=== PATIENT | female | born 1950 | race Caucasian/White ===

== ENCOUNTER 2016-12-02 06:51 | Day surgery (SDC) | payer MEDICARE, OTHER ==
--- NOTE | ~2016-12-02 | EGD ---
EGD REPORT [facility] [address] [address] NAME: KIRIT ADLER : [birth year] STATUS : REG [facility]#: [id number] AGE: 66 ADM/REG DATE : 12/02/16 MR#: [id number] REPORT SERV DATE: 12/02/16 DICTATED BY: DATE: REPORT STATUS : Draft TRANSCRIBED BY: [employer] DATE: 12/02/16 [facility]oscopy Center Patient Name: Kirit Adler Date of : 1950 Attending MD: DELISA SERRA MD Procedure Date No Time: 12/02/2016 Procedure: Upper GI endoscopy Indications: Abdominal pain, Anemia Referring MD: JEFF MABRY Medicines: Monitored Anesthesia Care Complications: No immediate complications. Procedure: Pre-Anesthesia Assessment: - ASA Grade Assessment: III - A patient with severe systemic disease. After obtaining informed consent, the endoscope was passed under direct vision. Throughout the procedure, the patient's blood pressure, pulse, and oxygen saturations were monitored continuously. The GIF [id number] was introduced through the mouth, and advanced to the third part of duodenum. The upper GI endoscopy was accomplished without difficulty. The patient tolerated the procedure well. Findings: The examined esophagus was mildly tortuous. A small hiatus hernia was present. A benign-appearing, intrinsic mild stenosis measuring less than one cm (in length) was found 34 cm from the incisors and was traversed. Biopsies were taken with a cold forceps for histology. A guidewire was placed and the scope was withdrawn. Dilation was performed with a Savary dilator with no resistance at 54 Fr. No other significant abnormalities were identified in a careful examination of the esophagus. There is no endoscopic evidence of areas of erosion, ulcerations or varices in the entire esophagus. Diffuse moderately erythematous mucosa without bleeding was found in the entire examined stomach. Biopsies were taken with a cold forceps for histology. There is no endoscopic evidence of ulceration or varices in the entire examined stomach. The examined duodenum was normal. There is no endoscopic evidence of inflammation, mucosal abnormalities or ulceration in the entire examined duodenum. The cardia and gastric fundus were normal on retroflexion. EGD REPORT [address] [address] NAME: KIRIT ADLER : [birth year] STATUS : REG [facility] [place] PAT#: [id number] AGE: 66 ADM/REG DATE : 12/02/16 MR#: [id number] REPORT SERV DATE: 12/02/16 DICTATED BY: DATE: REPORT STATUS : Draft TRANSCRIBED BY: [employer] DATE: 12/02/16 Impression: - Tortuous esophagus. - Hiatus hernia. - Benign-appearing esophageal stricture. Biopsied. Dilated. - Erythematous mucosa in the stomach. Biopsied. - Normal examined duodenum. Recommendation: - Patient has a contact number available for emergencies. The signs and symptoms of potential delayed complications were discussed with the patient. Return to normal activities tomorrow. Written discharge instructions were provided to the patient. - Return to previous diet. - Discharge patient to home. - Continue present medications. - Await pathology results. Procedure Code(s): --- Professional --- 03663, Esophagogastroduodenoscopy, flexible, transoral; with insertion of guide wire followed by passage of dilator(s) through esophagus over guide wire 06922, Esophagogastroduodenoscopy, flexible, transoral; with biopsy, single or multiple Diagnosis Code(s): --- Professional --- Q39.9, Congenital malformation of esophagus, unspecified K44.9, Diaphragmatic hernia without obstruction or gangrene K22.2, Esophageal obstruction K31.9, Disease of stomach and duodenum, unspecified R10.9, Unspecified abdominal pain D64.9, Anemia, unspecified CPT copyright 2013 [employer]. All rights reserved. The codes documented in this report are preliminary and upon structural layout worker review may be revised to meet current compliance requirements. DELISA SERRA MD 12/02/2016 9:48 AM This report has been signed electronically. Number of Addenda: 0 Note Initiated On: 12/02/2016 9:16 AM Scope Withdrawal Time 0 hours 0 minutes 0 seconds EGD REPORT [facility] [address] [address] NAME: KIRIT ADLER : [birth year] STATUS : REG [facility] – [place] PAT#: [id number] AGE: 66 ADM/REG DATE : 12/02/16 MR#: [id number] REPORT SERV DATE: 12/02/16 DICTATED BY: DATE: REPORT STATUS : Draft TRANSCRIBED BY: [employer] DATE: 12/02/16 [address] [id number]
--- NOTE | ~2016-12-02 | EGD ---
EGD REPORT [facility] [address] [address] NAME: KIRIT ADLER : [birth year] STATUS : REG [facility]#: [id number] AGE: 66 ADM/REG DATE : 12/02/16 MR#: [id number] REPORT SERV DATE: 12/02/16 DICTATED BY: DATE: REPORT STATUS : Draft TRANSCRIBED BY: [employer] DATE: 12/02/16 Endoscopy Center Patient Name: Kirit Adler Date of : 1950 Attending MD: DELISA SERRA MD Procedure Date No Time: 12/02/2016 Procedure: Colonoscopy Indications: Abdominal pain, Anemia Referring MD: JEFF MABRY Medicines: Monitored Anesthesia Care Complications: No immediate complications. Procedure: Pre-Anesthesia Assessment: - ASA Grade Assessment: III - A patient with severe systemic disease. After I obtained informed consent, the scope was passed under direct vision. Throughout the procedure, the patient's blood pressure, pulse, and oxygen saturations were monitored continuously. The PCF [id number] was introduced through the anus and advanced to the cecum, identified by appendiceal orifice and ileocecal valve. The colonoscopy was performed without difficulty. The patient tolerated the procedure well. The quality of the bowel preparation was good. Findings: The perianal and digital rectal examinations were normal. Multiple small-mouthed diverticula were found in the sigmoid colon. A sessile polyp was found in the rectum. The polyp was small in size. The polyp was removed with a cold snare. Resection and retrieval were complete. No other significant abnormalities were identified in a careful examination of the remainder of the colon. There is no endoscopic evidence of inflammation, mass, ulcerations or angioectasia in the entire colon. Internal hemorrhoids were found during retroflexion and were Grade I (internal hemorrhoids that do not prolapse). No additional abnormalities were found on retroflexion. Impression: - Diverticulosis in the sigmoid colon. - One small polyp in the rectum. Resected and retrieved. - Internal hemorrhoids. Recommendation: - Patient has a contact number available for emergencies. The signs and symptoms of potential delayed complications were discussed with the patient. Return to EGD REPORT [address] [address] NAME: KIRIT ADLER : [birth year] STATUS : REG [facility] [place] PAT#: [id number] AGE: 66 ADM/REG DATE : 12/02/16 MR#: [id number] REPORT SERV DATE: 12/02/16 DICTATED BY: DATE: REPORT STATUS : Draft TRANSCRIBED BY: [employer] DATE: 12/02/16 normal activities tomorrow. Written discharge instructions were provided to the patient. - High fiber diet. - Discharge patient to home. - Continue present medications. - Await pathology results. - Repeat colonoscopy in 5-10 years for surveillance based on pathology results. - If the pathology report reveals adenomatous tissue, then repeat the colonoscopy for surveillance in 5 years. - If the pathology report reveals no adenomatous tissue, then repeat the colonoscopy for screening purposes in 10 years. Procedure Code(s): --- Professional --- 35463, Colonoscopy, flexible, proximal to splenic flexure; with removal of tumor(s), polyp(s), or other lesion(s) by snare technique Diagnosis Code(s): --- Professional --- K64.0, First degree hemorrhoids K57.30, Diverticulosis of large intestine without perforation or abscess without bleeding K62.1, Rectal polyp R10.9, Unspecified abdominal pain D64.9, Anemia, unspecified CPT copyright 2013 [employer]. All rights reserved. The codes documented in this report are preliminary and upon marine chronometer assembler review may be revised to meet current compliance requirements. DELISA SERRA MD 12/02/2016 10:07 AM This report has been signed electronically. Number of Addenda: 0 Note Initiated On: 12/02/2016 9:14 AM Scope Withdrawal Time 0 hours 11 minutes 29 seconds [id number] [id number]
[~2016-12-02 06:51] MED LIST: ACET500CAP PO; ALEVE220 MG PO; ASAB PO; COQ-10200 MG PO; COZAAR100 MG PO; FLONASE NAS; HYZAAR 100/25 T1 TAB PO; INTEGRA PLUS C1 EACH PO; KLOR-CON 88 MEQ PO; MAX25 PO; MUCINEX600 MG PO; NEXIUM40 PO; SINGULAIR1 PO; VESICARE5 PO; VITAMIN D31000 UNIT PO; ZOL100 PO
== END 2016-12-02 23:59 | disposition home health service (06) ==
LOC: DMU 06:51
PROVIDERS: Internal Medicine Gastroenterology
PROC: 0DB58ZX Excision of Esophagus, Via Natural or Artificial Opening Endoscopic, Diagnostic (ICD-10-PCS; principal; 2016-12-02 09:00)
PROC: 0D758ZZ Dilation of Esophagus, Via Natural or Artificial Opening Endoscopic (ICD-10-PCS; 2016-12-02 09:00)
PROC: 0DBP8ZZ Excision of Rectum, Via Natural or Artificial Opening Endoscopic (ICD-10-PCS; 2016-12-02 09:00)
DX: K20.9 Esophagitis, unspecified (principal); K62.1 Rectal polyp; K44.9 Diaphragmatic hernia without obstruction or gangrene; K22.2 Esophageal obstruction; K57.30 Diverticulosis of large intestine without perforation or abscess without bleeding; K64.0 First degree hemorrhoids; J45.909 Unspecified asthma, uncomplicated; E66.9 Obesity, unspecified; F41.9 Anxiety disorder, unspecified; F32.9 Major depressive disorder, single episode, unspecified; N18.9 Chronic kidney disease, unspecified; I12.9 Hypertensive chronic kidney disease with stage 1 through stage 4 chronic kidney disease, or unspecified chronic kidney disease; Z88.8 Allergy status to other drugs, medicaments and biological substances
CPT/HCPCS: 88305; J2405

== ENCOUNTER 2016-12-28 13:24 | Day surgery (SDC) | payer MEDICARE, OTHER ==
[2016-12-23 13:05] LABS: HEMATOCRIT 36.2 % (36.0-48.0); HEMOGLOBIN 11.8 g/dL (12.0-16.0)
[2016-12-23 13:23] LABS: BUN (BLOOD UREA NITROGEN) 24 MG/DL (6-23); CALCIUM, SERUM 10.1 MG/DL (8.5-10.4); CHLORIDE, SERUM 107 MMOL/L (96-112); CREATININE 1.12 MG/DL (0.55-1.02); GFR AFRICAN AMERICAN 59 ML/MIN (>=60); GFR NON AFRICAN AMERICAN 51 ML/MIN (>=60); GLUCOSE, SERUM 111 MG/DL (60-99); SODIUM, SERUM 142 MMOL/L (135-148)
[2016-12-23 13:25] LABS: CO2 (CARBON DIOXIDE) 28 MMOL/L (24-34); POTASSIUM, SERUM 4.7 MMOL/L (3.5-5.3)
--- NOTE | ~2016-12-28 | OP ---
Record Of Operation [facility] [address] [place]. [address] NAME: KIRIT JACKMAN : [birth year] STATUS : [facility]#: [id number] AGE: 66 ADM/REG DATE : 12/28/16 MR#: [id number] REPORT SERV DATE: 12/28/16 DICTATED BY: USAMA AWAN DATE: 12/28/16 REPORT STATUS : Draft TRANSCRIBED BY: MODL DATE: 12/28/16 DATE OF PROCEDURE: 12/28/2016 PREOPERATIVE DIAGNOSIS: Primary hyperparathyroidism. POSTOPERATIVE DIAGNOSIS: Primary hyperparathyroidism. PROCEDURES: 1. Parathyroidectomy. 2. NIM monitoring of superior and recurrent laryngeal nerve. SURGEON: Usama Awan M.D. ANESTHESIA: General. COMPLICATIONS: None. COUNTS: All counts correct following the procedure. ESTIMATED BLOOD LOSS: 2 mL. PREOPERATIVE INFORMED CONSENT: We discussed risks and benefits of surgery, including but not limited to bleeding, infection, possible superior and/or recurrent laryngeal nerve injury, possible postoperative hypoparathyroidism, possible need for reoperation for second adenoma, she understands the risks and benefits of surgery and consent is on chart. PROCEDURE IN DETAIL: The patient was brought to the operating suite and placed on the operating table in supine position. General endotracheal anesthesia with a NIM monitoring endotracheal tube was established without difficulty. The NIM monitor was turned on, calibrated and noted to be functioning properly. Intraoperative PTH was drawn and showed elevated PTH at 85. Neck was cleaned and prepped in the sterile fashion and then injected with 1% lidocaine with 1:100,000 epinephrine for hemostasis. Following this, a 15 blade scalpel these make incision down to the underlying subcutaneous tissues. Electrocautery used to perform sharp dissection down through the midline fascia. The midline strap muscles were retracted laterally. Dissecting along the capsule, the left lobe of the thyroid was performed dividing the middle and inferior thyroid veins using the Harmonic scalpel. This allowed access to the tracheoesophageal groove where dissecting in the paratracheal and paraesophageal fat, the enlarged inferior parathyroid was identified, the recurrent laryngeal nerve was identified just deep to this and confirmed using the NIM stimulator and preserved. The parathyroid was dissected from surrounding tissues dividing the feeding vessels using bipolar cautery as well as harmonic scalpel, was removed en bloc and sent for frozen section. Frozen section came back with a cellular parathyroid. Once confirmation was received, the wound was copiously irrigated with sterile saline. Midline fascia was closed using 3-0 Vicryl subcutaneous closure using a 3-0 Vicryl and skin closure using running 4-0 Prolene subcuticular closure followed Mastisol, Steri-Strips, and Tegaderm dressing. Record Of Operation [facility] [address] [place]. [address] NAME: KIRIT JACKMAN : [birth year] STATUS : [facility]#: [id number] AGE: 66 ADM/REG DATE : 12/28/16 MR#: [id number] REPORT SERV DATE: 12/28/16 DICTATED BY: USAMA AWAN DATE: 12/28/16 REPORT STATUS : Draft TRANSCRIBED BY: TAVO DATE: 12/28/16 ELI/TAVO Usama Awan M.D. / [id number] CC: Thea Alonzo M.D.
[2016-12-28 15:45] LABS: PTH (INTRAOPERATIVE) 85.4 PG/ML (10.0-65.0); PTH TAT 0 Hrs 20 Mins
[2016-12-28 16:38] LABS: PTH (INTRAOPERATIVE) 25.2 PG/ML (10.0-65.0); PTH TAT 0 Hrs 22 Mins
== END 2016-12-28 20:25 | disposition home or self-care (01) ==
LOC: SDC 13:24
PROVIDERS: Otolaryngology
PROC: 0GBP0ZZ Excision of Left Inferior Parathyroid Gland, Open Approach (ICD-10-PCS; principal; 2016-12-28 14:45)
DX: E21.0 Primary hyperparathyroidism (principal); I10 Essential (primary) hypertension; I12.9 Hypertensive chronic kidney disease with stage 1 through stage 4 chronic kidney disease, or unspecified chronic kidney disease; N18.9 Chronic kidney disease, unspecified; J45.909 Unspecified asthma, uncomplicated; E66.01 Morbid (severe) obesity due to excess calories; G47.33 Obstructive sleep apnea (adult) (pediatric); K21.9 Gastro-esophageal reflux disease without esophagitis; D64.9 Anemia, unspecified; F32.9 Major depressive disorder, single episode, unspecified; R32 Unspecified urinary incontinence; M19.90 Unspecified osteoarthritis, unspecified site; H91.90 Unspecified hearing loss, unspecified ear; E78.00 Pure hypercholesterolemia, unspecified; Z88.8 Allergy status to other drugs, medicaments and biological substances; Z98.42 Cataract extraction status, left eye; Z88.1 Allergy status to other antibiotic agents; Z98.41 Cataract extraction status, right eye; Z90.89 Acquired absence of other organs; Z96.1 Presence of intraocular lens; Z90.710 Acquired absence of both cervix and uterus; Z87.442 Personal history of urinary calculi; Z90.49 Acquired absence of other specified parts of digestive tract
CPT/HCPCS: 80048; 83970; 85014; 85018; 88305; 88313; 93005; A9270-GY; J0690; J2250; J2405; J2710; J3010